=== PATIENT | male | born 1980 | race Two or more races ===

== ENCOUNTER 2017-03-21 22:46 | Emergency (ER) | payer OTHER ==
--- NOTE | ~2017-03-21 | CR63 ---
[facility] A Service of [facility] & [facility] / [facility] RADIOLOGY TEXT RESULTS PATIENT: TOMA VELA LOCATION: [facility] : [birth year] UNIT #: [id number] AGE: [address]: Urbano Andrea MD SEX: M ORDER DR: [id number] [facility] [address] [place], [place] [address] [id number] E MR#: [id number] Acc #: [id number] NAME: TOMA VELA : 1980 SEX: M STUDY DATE/TIME: 03/21/2017 23:54 UNIT: [facility] ROOM: STUDY DESCRIPTION: CR Chest 2 View Attending Physician: Urbano Andrea M.D. Ordering Physician: Urbano Andrea M.D. Primary Care Physician: Primary Care Physician No MEDICAL IMAGING REPORT This report is preliminary unless electronic signature is present EXAM PA and lateral chest INDICATIONS Chest pain starting tonight. COMPARISON 06/01/2016. FINDINGS A PA and lateral view of the chest were obtained. The heart size and vascularity are normal. Lungs are clear. Bones are normal. There are low lung volumes. IMPRESSION No active disease. Dictated by... Avtar Golden M.D. THIS IS AN ELECTRONICALLY VERIFIED REPORT Avtar Golden M.D. at 03/22/2017 3:37 AM FEL/parish TD: 03/22/2017 02:24 JOB #: [id number] MEDICAL IMAGING REPORT Page 1 of 1 COPY
--- NOTE | ~2017-03-21 | EKG ---
PATIENT: TOMA VELA UNIT #: [id number] Ventricular Rate: 76 BPM Atrial Rate: 76 BPM P-R Interval: 160 ms QRS Duration: 88 ms Q-T Interval: 372 ms QTC Calculation(Bezet): 418 ms P Belva: 45 degrees Calculated R Belva: 9 degrees Calculated T Belva: 5 degrees Diagnosis Line: Normal sinus rhythm Diagnosis Line: Normal ECG Diagnosis Line: When compared with ECG of 05-SEP-2015 12:02, Diagnosis Line: ST no longer elevated in Anterior leads Diagnosis Line: T wave amplitude has decreased in Anterior leads Diagnosis Line: Confirmed by NOEL FRIAS MD ([id number]) on 03/22/2017 Diagnosis Line: 7:42:02 AM INTERPRETING MD: RODRIGUEZ WOODS
[~2017-03-21 22:46] MED LIST: LORTAB 5/500 TA1 TA1 PO; MEDROL4 MG/DOSE- PO
[2017-03-21 23:59] LABS: BASOPHIL% 0.4 % (0-2.5); EOSINOPHIL# 0.1 X10e3 (0-0.7); EOSINOPHIL% 1.1 % (0.0-7.0); HEMATOCRIT 41.2 % (38.0-50.0); HEMOGLOBIN 14.1 gm/dL (13.0-16.0); LYMPHOCYTE# 3.2 X10e3 (1.0-3.5); LYMPHOCYTE% 32.7 % (17.0-45.0); MEAN CELL VOLUME 92.2 FL (83-96); MEAN CORPUSCULAR HEMOGLOBIN 31.6 PG (28-34); MEAN CORPUSCULAR HGB CONC 34.2 g/dL (30-36); MONOCYTE# 0.9 X10e3 (0-1.0); MONOCYTE% 8.8 % (3.0-12.0); NEUTROPHIL# 5.5 X10e3 (1.5-7.1); PLATELET COUNT 252 X10e3 (140-420); RED BLOOD COUNT 4.47 X10e (3.90-5.60); RED CELL DISTRIBUTION WIDTH 14.2 % (11.0-15.5); WHITE BLOOD COUNT 9.7 X10e3 (4.0-10.5)
[2017-03-22] LABS: DIFF IND NO
[2017-03-22 00:13] LABS: ALBUMIN SERUM 4.3 g/dL (3.5-5.0); ALKALINE PHOSPHATASE 78 U/L (32-92); ALT (SGPT) 40 U/L (10-40); AST (SGOT) 37 U/L (10-42); BILIRUBIN, DIRECT <0.1 mg/dL (0.0-0.2); BILIRUBIN,TOTAL <0.1 mg/dL (0.2-2.0); BLOOD UREA NITROGEN 12 mg/dL (9-23); BUN/CREATININE RATIO 13.33; CALCIUM SERUM 8.7 mg/dL (8.4-10.2); CARBON DIOXIDE 26 mmol/L (22-31); CHLORIDE 105 mmol/L (100-111); CREATININE SERUM 0.9 mg/dL (0.6-1.4); GLOM FILT RATE Estimated 110.3 mL/min (>60); GLUCOSE FASTING 111 mg/dL (70-110); POTASSIUM 3.1 mmol/L (3.5-5.1); PROTEIN TOTAL SERUM 7.5 g/dL (6.0-8.3); SODIUM 139 mmol/L (135-145)
[2017-03-22 00:28] LABS: POC - CKMB 2.2 ng/mL (0.0-7.9); POC - TROPONIN <0.05 ng/mL (<=0.05)
[2017-03-22 01:51] LABS: POC - TROPONIN <0.05 ng/mL (<=0.05)
== END 2017-03-22 02:16 | disposition home or self-care (01) ==
LOC: CED 22:46
PROVIDERS: Emergency Medicine
DX: R07.89 Other chest pain (principal); F17.200 Nicotine dependence, unspecified, uncomplicated
CPT/HCPCS: 36415; 71020; 80048; 80076; 82553; 83880; 84484; 85025; 93005; 96374; 99285; J1885